=== PATIENT | female | born 1990 | race Caucasian/White ===

== ENCOUNTER 2018-01-02 09:32 | Emergency (ER) | payer SELFPAY ==
[~2018-01-02] VITALS: Ht 172.7 cm; Wt 61.2 kg
[2018-01-02 09:57] VITALS: BP 111/68
[2018-01-02] MEDS ORDERED: Mylanta II UD 30ml ORAL ONE (10:30)
[2018-01-02] MEDS ORDERED: RANITIDINE HCL150 MG ORAL (10:30)
[2018-01-02] MEDS ORDERED: Dicyclomine HCl 10mg/5ml oral soln ORAL ONE (10:30)
[2018-01-02] MEDS ORDERED: Lidocaine 2% Visc 15ml soln ORAL ONE (10:30)
[2018-01-02 10:46] VITALS: BP 111/68
--- NOTE | 2018-01-02 11:34 | Emergency Room Report ---
History of Present Illness General Chief Complaint: Abdominal Pain Source: Patient Present Illness HPI 27-year-old female presents to ED for evaluation. Patient presents with epigastric pain which started last night. Resolved just prior to arrival. Initially burning, 7/10, nonradiating. Denies nausea or vomiting. Fevers or chills. Denies chest pain or shortness of breath. Notes history of gastritis and she was younger. Currently not taking any medication. No other aggravating or relieving factors. Denies any other associated symptoms Allergies: Coded Allergies: No Known Allergies (Unverified , 01/02/18) Patient History Past Medical History: none Past Surgical History: none Pertinent Family History: none Social History: Denies: smoking, alcohol use, drug use Last Menstrual Period: on control pill Now: No Immunizations: UTD Reviewed Nursing Documentation: PMH: Agreed, PSxH: Agreed Nursing Documentation-PMH Past Medical History: No Stated History Review of Systems All Other Systems: negative except mentioned in HPI Physical Exam Vital Signs Date Time Temp Pulse Resp B/P (MAP) Pulse Ox O2 Delivery O2 Flow Rate FiO2 01/02/18 09:41 98.1 81 18 107/67 97 Room Air 98.1 Sp02 EP Interpretation: reviewed, normal General Appearance: no apparent distress, alert, GCS 15, non-toxic Head: normocephalic, atraumatic Eyes: bilateral eye normal inspection, bilateral eye PERRL ENT: hearing grossly normal, normal pharynx, no angioedema, normal voice Neck: full range of motion, supple/symm/no masses Respiratory: chest non-tender, lungs clear, normal breath sounds, speaking full sentences Cardiovascular #1: regular rate, rhythm, no edema Cardiovascular #2: 2+ carotid (R), 2+ carotid (L), 2+ radial (R), 2+ radial (L) , 2+ dorsalis pedis (R), 2+ dorsalis pedis (L) Gastrointestinal: normal bowel sounds, non tender, soft, non-distended, no guarding, no rebound Rectal: deferred Genitourinary: normal inspection, no CVA tenderness Musculoskeletal: back normal, gait/station normal, normal range of motion, non- tender Neurologic: alert, oriented x3, responsive, motor strength/tone normal, sensory intact, speech normal Psychiatric: judgement/insight normal, memory normal, mood/affect normal, no suicidal/homicidal ideation Reflexes: 3+ bicep (R), 3+ bicep (L), 3+ tricep (R), 3+ tricep (L), 3+ knee (R) , 3+ knee (L) Skin: normal color, no rash, warm/dry, well hydrated Lymphatic: no adenopathy Medical Decision Making Diagnostic Impression: Primary Impression: Gastritis Qualified Codes: K29.00 - Acute gastritis without bleeding ER Course Hospital Course 27-year-old female presents ED complaining of epigastric pain differential diagnosis: gastritis, SBO, cholecystits Clinical course Patient placed on stretcher. On awake overnight monitor. After initial history, physical exam reveals female in no acute distress. Abdomen soft. No guarding or rebound. Bowel sounds active. Vital stable. Discussed findings with patient. Likely gastritis given prior history of gastritis. Given that patient is the symptomatic I see no reason for further intervention at this time. Given by mouth Pepcid here given GI cocktail. I feel this is a highly complex case requiring extensive working including EKG/ Rhythm strip, Xray/CT/US, Blood/urine lab work, repeat exams while in ED, and administration of strong opiates/narcotics for pain control, admission to hospital or close patient follow up. Diagnosis - gastritis Stable and discharged to home with prescriptions for Zantac. Followup with PMD. Return to ED if symptoms recur or worsen Last Vital Signs Date Time Temp Pulse Resp B/P (MAP) Pulse Ox O2 Delivery O2 Flow Rate FiO2 01/02/18 10:46 98.0 70 18 111/68 98 Room Air 98.0 Status: improved Disposition: HOME, SELF-CARE Condition: Stable Scripts Ranitidine Hcl* (ZANTAC*) 150 Mg Tablet 150 MG ORAL TWICE A DAY, #30 TAB Prov: ANNE DUGAN M.D. 01/02/18 Patient Instructions: Gastritis, Adult, [id number] ANNE DUGAN M.D. Jan 02, 2018 11:33
== END 2018-01-02 10:46 | disposition home or self-care (01) ==
LOC: EMR 09:54
DX: K29.70 Gastritis, unspecified, without bleeding (principal)
CPT/HCPCS: 99284